=== PATIENT | male | born 1945 | race Hispanic/Latino ===

== ENCOUNTER → 2018-02-04 | Outpatient (CLI) | payer OTHER ==
[~2018-02-04] MED LIST: ALPR0.5T8 PO; DILT120C92 PO; LISI1TAB11 PO; METF-446 PO; PRAV40TA3 PO; TAMS0.4C32 PO; TRI115C TP
== END | disposition home or self-care (01) ==
LOC: OIH 13:13
PROVIDERS: ATTEND Internal Medicine
DX: I10 Essential (primary) hypertension (principal)
CPT/HCPCS: 71046